=== PATIENT | female | born 1960 | race Caucasian/White ===

== ENCOUNTER → 2016-10-08 | Outpatient (CLI) | payer MEDICARE, BC ==
[~2016-10-08] MED LIST: ACYC200C4 PO; ALBU0.63 NEB; ALBU18HF INH; ALBU8.5H3 INH; ALPR1TAB2 PO; ASPI-496 PO; ASPI-515 PO; ASPRIN; BIOT25004 PO; BUPI5VIA PER MD; BUPIVACAINE; CALC-31 PO; CHLO473M6 MT; CHOL20002 PO; CLON-365 PO; CLOT15CR6 TP; CYCL-259 PO; DEXL30CA2; DICL100G8; DICL100G8 TP; DOCO200C3 PO; DULO60CA7 PO; ERGO500017 PO; FLUT16SP NS; FLUT1DIS; FLUT1DIS3 INH; FURO20TA3 PO; HYDR1AMP INJ; HYDR2TAB13 PO; LEVO750T26 PO; LIDO1ADH TP; LISI2.5T; LUBI24CA5; LUBI24CA5 PO; METH-356 PO; METO25TA35 PO; NYST1POW2; OMEP40CA6 PO; POT25TAB PO; POTA10CA PO; POTA500P26 PO; PREG100C; PREG100C PO; PREG50CA PO; PREN1TAB60 PO; RALO60TA PO; ROPI3TAB2; ROPI3TAB2 PO; SOLI5TAB PO; SUCR1TAB PO; WARF2.5T73 PO; ZOLP10TA PO; ZOLP10TA5 PO; ZOLP12.54 PO; [UNRECOGNIZED DRUG - CODE]; [UNRECOGNIZED DRUG - CODE] IMPLANT; [UNRECOGNIZED DRUG - CODE] INJ; [UNRECOGNIZED DRUG - CODE] PER MD; dilaudid
== END | disposition home or self-care (01) ==
LOC: CARD 12:31
PROVIDERS: ATTEND Registered Nurse
DX: G45.4 Transient global amnesia (principal)
CPT/HCPCS: 95819

== ENCOUNTER → 2016-10-19 | Outpatient (CLI) | payer MEDICARE, BC ==
[2016-10-19 13:06] LABS: HEMOGLOBIN 13.6 g/dL (11.7-16.4)
[2016-10-19 13:15] LABS: BLOOD UREA NITROGEN 16 mg/dL (7-18)
[2016-10-19 13:18] LABS: ASPARTATE AMINO TRANSFERASE 28 U/L (15-37)
== END | disposition home or self-care (01) ==
LOC: CFH 10:54
PROVIDERS: ATTEND Nurse Practitioner Primary Care
DX: Z01.818 Encounter for other preprocedural examination (principal); D64.9 Anemia, unspecified; J45.20 Mild intermittent asthma, uncomplicated; E78.2 Mixed hyperlipidemia; E55.9 Vitamin D deficiency, unspecified; K21.9 Gastro-esophageal reflux disease without esophagitis; E88.81 Metabolic syndrome and other insulin resistance; M85.80 Other specified disorders of bone density and structure, unspecified site; E61.1 Iron deficiency; N39.0 Urinary tract infection, site not specified; G47.30 Sleep apnea, unspecified; F06.4 Anxiety disorder due to known physiological condition
CPT/HCPCS: 36415; 71020; 80053; 81001; 82306; 85025; 85610; 85730

== ENCOUNTER → 2016-10-29 | Outpatient (CLI) | payer MEDICARE, BC | END | disposition home or self-care (01) | LOC: CARD 14:58 | PROVIDERS: ATTEND Internal Medicine | DX: G47.33 Obstructive sleep apnea (adult) (pediatric) (principal) | CPT/HCPCS: 94060; 94620; 94726; 94729 ==

== ENCOUNTER → 2017-02-18 | Outpatient (CLI) | payer MEDICARE, BC ==
[~2017-02-18] MED LIST changes: -HYDR2TAB13 PO; +HYDR2TAB29 PO
[2017-02-18 09:02] LABS: HEMATOCRIT 40.9 % (34.6-47.8); HEMOGLOBIN 13.9 g/dL (11.7-16.4); WHITE BLOOD COUNT 4.9 x10^3/uL (3.4-10)
[2017-02-18 09:15] LABS: BLOOD UREA NITROGEN 19 mg/dL (7-18)
[2017-02-18 09:18] LABS: C-REACTIVE PROTEIN, QUANT < 0.02 mg/dL (0.02-0.49)
[2017-02-18 09:42] LABS: ASPARTATE AMINO TRANSFERASE 27 U/L (15-37); FERRITIN 54.6 ng/mL (8-252); TOTAL IRON BINDING CAPACITY 351 mcg/dL (250-450); TRANSFERRIN 269 mg/dL (200-360)
[2017-02-19 11:06] LABS: IMMUNOGLOBULIN A 215 mg/dL (87-352); IMMUNOGLOBULIN G 932 mg/dL (700-1600); IMMUNOGLOBULIN M 39 mg/dL (26-217)
== END | disposition home or self-care (01) ==
LOC: LAB 08:21
PROVIDERS: ATTEND Registered Nurse
DX: E78.2 Mixed hyperlipidemia (principal); E55.9 Vitamin D deficiency, unspecified; E61.1 Iron deficiency; R53.83 Other fatigue; D64.9 Anemia, unspecified; M85.80 Other specified disorders of bone density and structure, unspecified site; E88.81 Metabolic syndrome and other insulin resistance; R01.1 Cardiac murmur, unspecified; G47.30 Sleep apnea, unspecified; J45.20 Mild intermittent asthma, uncomplicated; K21.9 Gastro-esophageal reflux disease without esophagitis; G89.29 Other chronic pain; F06.4 Anxiety disorder due to known physiological condition; R93.5 Abnormal findings on diagnostic imaging of other abdominal regions, including retroperitoneum; N39.0 Urinary tract infection, site not specified; F51.01 Primary insomnia; R40.4 Transient alteration of awareness; Z83.2 Family history of diseases of the blood and blood-forming organs and certain disorders involving the immune mechanism
CPT/HCPCS: 36415; 80053; 80061; 81001; 82164; 82175; 82248; 82306; 82607; 82728; 82746; 82784; 82785; 83540; 83550; 83655; 83735; 83825; 84100; 84425; 84439; 84443; 84466; 84480; 85025; 85651; 86140; 86141; 87086

== ENCOUNTER → 2017-02-23 | Outpatient (CLI) | payer MEDICARE, BC ==
[~2017-02-23] MED LIST changes: -BIOT25004 PO; +BIOT25005 PO; -LUBI24CA5; -LUBI24CA5 PO; +LUBI24CA7; +LUBI24CA7 PO
== END | disposition home or self-care (01) ==
LOC: LAB 09:35
PROVIDERS: ATTEND Internal Medicine
DX: N39.0 Urinary tract infection, site not specified (principal); E55.9 Vitamin D deficiency, unspecified; E61.1 Iron deficiency; R53.83 Other fatigue; D64.9 Anemia, unspecified; E88.81 Metabolic syndrome and other insulin resistance; E78.2 Mixed hyperlipidemia; G47.30 Sleep apnea, unspecified; R01.1 Cardiac murmur, unspecified; J45.20 Mild intermittent asthma, uncomplicated; K21.9 Gastro-esophageal reflux disease without esophagitis; G89.29 Other chronic pain; F06.4 Anxiety disorder due to known physiological condition; R93.5 Abnormal findings on diagnostic imaging of other abdominal regions, including retroperitoneum; M85.80 Other specified disorders of bone density and structure, unspecified site; F51.01 Primary insomnia; R40.4 Transient alteration of awareness; Z83.2 Family history of diseases of the blood and blood-forming organs and certain disorders involving the immune mechanism
CPT/HCPCS: 82043

== ENCOUNTER → 2017-03-10 | Outpatient (CLI) | payer MEDICARE, BC ==
[~2017-03-10] MED LIST changes: -ALBU8.5H3 INH; +ALBU8.5H8 INH; +DICL100G19; +DICL100G19 TP; -DICL100G8; -DICL100G8 TP; -SOLI5TAB PO; +SOLI5TAB2 PO
== END | disposition home or self-care (01) ==
LOC: RAD 09:29
PROVIDERS: ATTEND Student in an Organized Health Care Education/Training Program
DX: M51.36 Other intervertebral disc degeneration, lumbar region (principal); M51.26 Other intervertebral disc displacement, lumbar region; M12.88 Other specific arthropathies, not elsewhere classified, other specified site; M51.25 Other intervertebral disc displacement, thoracolumbar region; M48.07 Spinal stenosis, lumbosacral region; M48.06 Spinal stenosis, lumbar region; M48.02 Spinal stenosis, cervical region; Z98.890 Other specified postprocedural states
CPT/HCPCS: 72050; 72148

== ENCOUNTER → 2017-05-24 | Outpatient (CLI) | payer MEDICARE, BC | END | disposition home or self-care (01) | LOC: CARD 12:22 | PROVIDERS: ATTEND Psychiatry & Neurology Neurology | DX: R56.9 Unspecified convulsions (principal) | CPT/HCPCS: 95819 ==

== ENCOUNTER → 2017-06-21 | Outpatient (CLI) | payer MEDICARE, BC | END | disposition home or self-care (01) | LOC: RAD 11:56 | PROVIDERS: ATTEND Student in an Organized Health Care Education/Training Program | DX: M50.23 Other cervical disc displacement, cervicothoracic region (principal); M51.24 Other intervertebral disc displacement, thoracic region; Z98.1 Arthrodesis status; Z98.890 Other specified postprocedural states | CPT/HCPCS: 72141 ==

== ENCOUNTER → 2017-07-26 | Outpatient (CLI) | payer MEDICARE, BC ==
[2017-07-26 12:30] LABS: BASOPHILS # (AUTO) 0.03 x10^3/uL (0-0.1); BASOPHILS % (AUTO) 1 % (0-1); EOSINOPHILS # (AUTO) 0.09 x10^3/uL (0-0.4); EOSINOPHILS % (AUTO) 2 % (1-7); LYMPHOCYTES # (AUTO) 1.61 x10^3/uL (1-3.4); LYMPHOCYTES % (AUTO) 27 % (22-44); MD NO; MEAN CORPUSCULAR HEMOGLOBIN 30.5 pg (27.0-34.8); MEAN CORPUSCULAR HGB CONC 33.7 g/dL (32.4-35.8); MEAN CORPUSCULAR VOLUME 90.7 fL (80-100); MEAN PLATELET VOLUME 8.4 fL (7.4-10.4); MONOCYTES % (AUTO) 5 % (2-9); NEUTROPHILS # (AUTO) 3.87 x10^3/uL (1.8-6.8); NEUTROPHILS % (AUTO) 66 % (42-75); PLATELET COUNT 243 x10^3/uL (130-400); RED BLOOD COUNT 4.63 x10^6/uL (3.82-5.3); RED CELL DISTRIBUTION WIDTH 12.9 % (9.6-15.2)
[2017-07-26 12:42] LABS: MICROSCOPIC INDICATED
[2017-07-26 12:43] LABS: ALBUMIN 4.1 g/dL (3.4-5.0); ANION GAP 4 mmol/L (5-15); CHLORIDE 105 mmol/L (98-107); CULTURE INDICATED? YES
[2017-07-26 12:53] LABS: HEMOGLOBIN A1C 5.6 % (4.2-6.3)
[2017-07-26 13:10] LABS: BILIRUBIN,TOTAL 0.3 mg/dL (0.2-1.0); HDL CHOLESTEROL (DIRECT) 70 mg/dL (40-60); TRIGLYCERIDES 74 mg/dL (50-200); VLDL CHOLESTEROL 15 mg/dL (0-25)
[2017-07-26 13:13] LABS: ALANINE AMINOTRANSFERASE 26 U/L (12-78); ALKALINE PHOSPHATASE 105 U/L (45-117); CHOL/HDL RATIO 2.9; CHOLESTEROL, TOTAL 205 mg/dL (140-239); CREATININE 0.86 mg/dL (0.55-1.02); FREE T4 (FREE THYROXINE) 0.94 ng/dL (0.76-1.46); HDL CHOL % 34 % (28-40); IRON LEVEL 89 mcg/dL (50-170); LDL CHOLESTEROL,CALCULATED 120 mg/dL (54-169); LDL/HDL RATIO 1.7 (0.5-3.0); TRANSFERRIN 303 mg/dL (200-360)
[2017-07-26 13:37] LABS: % IRON SATURATION 24 % (20-55); FOLATE LEVEL 18.1 ng/mL (3.1-17.5); TOTAL IRON BINDING CAPACITY 366 mcg/dL (250-450)
== END | disposition home or self-care (01) ==
LOC: LAB 12:04
PROVIDERS: ATTEND Nurse Practitioner Primary Care
DX: J45.20 Mild intermittent asthma, uncomplicated (principal); E55.9 Vitamin D deficiency, unspecified; E61.1 Iron deficiency; R53.83 Other fatigue; D64.9 Anemia, unspecified; E88.81 Metabolic syndrome and other insulin resistance; E78.2 Mixed hyperlipidemia; R01.1 Cardiac murmur, unspecified; G47.30 Sleep apnea, unspecified; K21.9 Gastro-esophageal reflux disease without esophagitis; G89.29 Other chronic pain; F06.4 Anxiety disorder due to known physiological condition; R07.89 Other chest pain; R93.5 Abnormal findings on diagnostic imaging of other abdominal regions, including retroperitoneum; R09.02 Hypoxemia; M85.80 Other specified disorders of bone density and structure, unspecified site; R40.4 Transient alteration of awareness; N39.0 Urinary tract infection, site not specified; L98.7 Excessive and redundant skin and subcutaneous tissue; J30.2 Other seasonal allergic rhinitis; R23.4 Changes in skin texture; Z79.899 Other long term (current) drug therapy
CPT/HCPCS: 36415; 80053; 80061; 81001; 82306; 82607; 82728; 82746; 82784; 82785; 83036; 83540; 83550; 84207; 84425; 84439; 84443; 84466; 84480; 85025; 87086

== ENCOUNTER 2017-08-12 07:48 | Day surgery (SDC) | payer MEDICARE, BC ==
[~2017-08-12] VITALS: Ht 162.6 cm; Wt 63.2 kg
[2017-08-12 07:43] VITALS: BP 138/92
[2017-08-12] MEDS ORDERED: LIDOCAINE/PF 1%-EPI 1:200K, 30 ML ONE (08:40)
== END 2017-08-12 09:34 | disposition home or self-care (01) ==
LOC: CACL 07:48
PROVIDERS: ATTEND Internal Medicine Cardiovascular Disease
DX: Z45.09 Encounter for adjustment and management of other cardiac device (principal); I47.1 Supraventricular tachycardia; I35.1 Nonrheumatic aortic (valve) insufficiency; I48.91 Unspecified atrial fibrillation; J45.909 Unspecified asthma, uncomplicated; I31.9 Disease of pericardium, unspecified; I34.0 Nonrheumatic mitral (valve) insufficiency; G47.30 Sleep apnea, unspecified; Z79.82 Long term (current) use of aspirin; Z88.6 Allergy status to analgesic agent; Z88.1 Allergy status to other antibiotic agents; Z88.5 Allergy status to narcotic agent; Z88.8 Allergy status to other drugs, medicaments and biological substances
CPT/HCPCS: 33284; J3490

== ENCOUNTER → 2017-10-29 | Outpatient (CLI) | payer MEDICARE, BC | LOC: CFH 09:38 | PROVIDERS: ATTEND Nurse Practitioner Primary Care | DX: R51 Headache (principal); K21.9 Gastro-esophageal reflux disease without esophagitis; E78.2 Mixed hyperlipidemia; Z79.899 Other long term (current) drug therapy | CPT/HCPCS: 70486 ==

== ENCOUNTER → 2017-12-17 | Outpatient (CLI) | payer MEDICARE, BC ==
[~2017-12-17] MED LIST changes: +RIZA10TA5 PO; +[UNRECOGNIZED DRUG - OTHER] PO
== END | disposition home or self-care (01) ==
LOC: CVU 12:16
PROVIDERS: ATTEND Internal Medicine Cardiovascular Disease
DX: I34.0 Nonrheumatic mitral (valve) insufficiency (principal)
CPT/HCPCS: 93306

== ENCOUNTER 2018-01-05 22:08 | Emergency (ER) | payer MEDICARE, BC ==
[2018-01-05] MEDS ORDERED: ACETAMINOPHEN 500 MG TABLET ONE (22:57)
[2018-01-05] MEDS ORDERED: CARDIA (22:58)
[2018-01-05] MEDS ORDERED: ACETAMINOPHEN 500 MG TABLET PO ONE (23:00)
[2018-01-05] MEDS ORDERED: VITAMIN B12 (23:02)
[2018-01-05 23:13] VITALS: BP 138/93
== END 2018-01-05 23:15 | disposition home or self-care (01) ==
LOC: ED 22:22
DX: S00.33XA Contusion of nose, initial encounter (principal); Y04.0XXA Assault by unarmed brawl or fight, initial encounter; Y93.89 Activity, other specified; Y99.8 Other external cause status; Y92.410 Unspecified street and highway as the place of occurrence of the external cause
CPT/HCPCS: 70160; 99284

== ENCOUNTER → 2018-04-27 | Outpatient (CLI) | payer MEDICARE, BC ==
[~2018-04-27] MED LIST changes: +CARDIA; -CHOL20002 PO; +CHOL200052 PO; -CLON-365 PO; +CLON1TAB11 PO; -ROPI3TAB2; -ROPI3TAB2 PO; +ROPI3TAB4; +ROPI3TAB4 PO; +VITAMIN B12
[2018-04-27 13:00] LABS: BASOPHILS # (AUTO) 0.03 x10^3/uL (0-0.1); BASOPHILS % (AUTO) 1 % (0-1); EOSINOPHILS # (AUTO) 0.06 x10^3/uL (0-0.4); EOSINOPHILS % (AUTO) 1 % (1-7); LYMPHOCYTES # (AUTO) 1.71 x10^3/uL (1-3.4); LYMPHOCYTES % (AUTO) 31 % (22-44); MD NO; MEAN CORPUSCULAR HEMOGLOBIN 30.5 pg (27.0-34.8); MEAN CORPUSCULAR HGB CONC 33.3 g/dL (32.4-35.8); MEAN CORPUSCULAR VOLUME 91.4 fL (80-100); MEAN PLATELET VOLUME 8.9 fL (7.4-10.4); MONOCYTES # (AUTO) 0.34 x10^3/uL (0.2-0.8); MONOCYTES % (AUTO) 6 % (2-9); NEUTROPHILS # (AUTO) 3.31 x10^3/uL (1.8-6.8); NEUTROPHILS % (AUTO) 61 % (42-75); PLATELET COUNT 204 x10^3/uL (130-400); RED BLOOD COUNT 4.39 x10^6/uL (3.82-5.3); RED CELL DISTRIBUTION WIDTH 12.8 % (9.6-15.2)
[2018-04-27 13:03] LABS: CHLORIDE 104 mmol/L (98-107)
[2018-04-27 13:09] LABS: ALANINE AMINOTRANSFERASE 35 U/L (12-78); ALBUMIN 3.8 g/dL (3.4-5.0); ALKALINE PHOSPHATASE 107 U/L (45-117); ANION GAP 4 mmol/L (5-15); BILIRUBIN,TOTAL 0.5 mg/dL (0.2-1.0); CALCIUM 8.7 mg/dL (8.5-10.1); CREATININE 0.73 mg/dL (0.55-1.02); TOTAL PROTEIN 7.6 g/dL (6.4-8.2)
== END | disposition home or self-care (01) ==
LOC: RAD 12:02
PROVIDERS: ATTEND Specialist
DX: M25.851 Other specified joint disorders, right hip (principal); M25.852 Other specified joint disorders, left hip
CPT/HCPCS: 36415; 73523; 80053; 82306; 85025

== ENCOUNTER → 2018-06-24 | Outpatient (CLI) | payer MEDICARE, BC ==
[~2018-06-24] MED LIST changes: +WARF2.5T32 PO; -WARF2.5T73 PO
[2018-06-24 10:33] LABS: MICROSCOPIC AUTO
[2018-06-24 10:37] LABS: CULTURE INDICATED? YES
[2018-06-24 10:43] LABS: CHOL/HDL RATIO 2.4; FOLATE LEVEL 15.3 ng/mL (3.1-17.5); FREE T4 (FREE THYROXINE) 0.85 ng/dL (0.76-1.46); LDL/HDL RATIO 1.2 (0.5-3.0); THYROID STIMULATING HORMONE 1.41 mIU/L (0.358-3.740)
== END | disposition home or self-care (01) ==
LOC: LAB 09:31
PROVIDERS: ATTEND Nurse Practitioner Primary Care
DX: E55.9 Vitamin D deficiency, unspecified (principal); E61.1 Iron deficiency; R53.83 Other fatigue; D64.9 Anemia, unspecified; E88.81 Metabolic syndrome and other insulin resistance; E78.2 Mixed hyperlipidemia; R01.1 Cardiac murmur, unspecified; G47.30 Sleep apnea, unspecified; J45.20 Mild intermittent asthma, uncomplicated; K21.9 Gastro-esophageal reflux disease without esophagitis; G89.29 Other chronic pain; F06.4 Anxiety disorder due to known physiological condition; R07.89 Other chest pain; R93.5 Abnormal findings on diagnostic imaging of other abdominal regions, including retroperitoneum; R09.02 Hypoxemia; M85.80 Other specified disorders of bone density and structure, unspecified site; R40.4 Transient alteration of awareness; N39.0 Urinary tract infection, site not specified; J30.2 Other seasonal allergic rhinitis; R51 Headache; Z79.899 Other long term (current) drug therapy
CPT/HCPCS: 36415; 80061; 81001; 82607; 82728; 82746; 83516; 83540; 83550; 84207; 84425; 84439; 84443; 84466; 84481; 87086

== ENCOUNTER → 2018-08-05 | Outpatient (CLI) | payer MEDICARE, BC ==
[~2018-08-05] MED LIST changes: -METH-356 PO; +METH10TA2 PO; +REGADENOSON 0.4 MG/5 ML SYRINGE ONE
== END | disposition home or self-care (01) ==
LOC: CFH 12:42
PROVIDERS: ATTEND Physician Assistant Medical
DX: I95.1 Orthostatic hypotension (principal); R07.9 Chest pain, unspecified
CPT/HCPCS: 78452; 93017; A9502; J2785

== ENCOUNTER → 2018-12-07 | Outpatient (CLI) | payer MEDICARE ==
[~2018-12-07] MED LIST changes: -FLUT16SP NS; +FLUT16SP24 NS; -REGADENOSON 0.4 MG/5 ML SYRINGE ONE
== END | disposition home or self-care (01) ==
LOC: RAD 07:25
PROVIDERS: ATTEND Internal Medicine
DX: R07.89 Other chest pain (principal); Z95.2 Presence of prosthetic heart valve; E55.9 Vitamin D deficiency, unspecified; D64.9 Anemia, unspecified; M85.80 Other specified disorders of bone density and structure, unspecified site; E88.81 Metabolic syndrome and other insulin resistance; K21.9 Gastro-esophageal reflux disease without esophagitis; J45.20 Mild intermittent asthma, uncomplicated; E78.2 Mixed hyperlipidemia; E61.1 Iron deficiency; Z88.5 Allergy status to narcotic agent; Z88.8 Allergy status to other drugs, medicaments and biological substances
CPT/HCPCS: 71046